=== PATIENT | female | born 1965 | race Caucasian/White ===

== ENCOUNTER 2016-12-29 18:27 | Emergency (ER) | payer MEDICAID, OTHER ==
[~2016-12-29] VITALS: Ht 157.5 cm; Wt 98.0 kg
[~2016-12-29 18:27] MED LIST: AZIT250T94 PO; D-ME118S6 PO; IBUP-1542 PO
[2016-12-29 18:42] VITALS: Ht 157.5 cm; Wt 98.0 kg
[2016-12-29] MEDS ORDERED: ONDANSETRON 4 MG INJ IV STA (18:49)
[2016-12-29] MEDS ORDERED: morphine 4 MG/ML VIAL IV STA (18:49)
--- NOTE | 2016-12-29 19:33 | ERD ---
ER Documentation Chief Complaint Date/Time DATE: 12/29/16 TIME: 19:32 Chief Complaint EPIGASTRIC RADIATING TO RT BACK PAIN X 3 MOS W/NAUSEA. WAITING U/S FROM PCP HPI 51-year-old female with history of obesity, presents to the emergency department intermittent epigastric abdominal pain that radiates to her right upper quadrant for 3 months, worsened over the last 2 days. She states that her primary care physician is aware of her pain and is still waiting for approval for the ultrasound. She reports nausea however no vomiting. Pain is sharp, intermittent. No fevers or chills noted per patient today. ROS All systems reviewed and are negative except as per history of present illness. Medications Home Meds Active Scripts Tramadol HCl (Tramadol HCl) 50 Mg Tablet, 50 MG PO Q4 Y for PAIN, #15 TAB Prov:ARBEN REYNOSO PA-C 12/29/16 Dextromethorphan Hb-Promethazine Hcl (Promethazine DM Syrup) 180 Ml Syrup, 5 ML PO Q6H Y for COUGH, #4 OZ Prov:ANTOLIN KWON MD 12/29/15 Ibuprofen* (Motrin*) 600 Mg Tab, 600 MG PO Q6, #16 TAB Prov:ANTOLIN KWON MD 12/29/15 Azithromycin* (Zithromax*) 250 Mg Tablet, 250 MG PO .ZPACK DIRECTED, #6 TAB TAKE 500 MG (2 TABS) THE FIRST DAY THEN 250 MG (1 TAB) DAYS 2-5 Prov:ANTOLIN KWON MD 12/29/15 Allergies Allergies: Coded Allergies: No Known Allergy (Unverified , 12/29/15) PMhx/Soc History of Surgery: No Anesthesia Reaction: No Hx Neurological Disorder: No Hx Respiratory Disorders: No Hx Cardiac Disorders: No Hx Psychiatric Problems: No Hx Miscellaneous Medical Probl: Yes (DM) Hx Alcohol Use: No Hx Substance Use: No Hx Tobacco Use: No Smoking Status: Never smoker Physical Exam Vitals Vital Signs Date Time Temp Pulse Resp B/P Pulse Ox O2 Delivery O2 Flow Rate FiO2 12/29/16 18:42 97.1 67 18 161/88 98 Physical Exam General: Well-developed, well-nourished. The patient appears in no acute distress. HEENT: Head is normocephalic, atraumatic. No scleral icterus. a. Neck: Supple. Nontender. Lungs: Clear to auscultation. Normal air movement. Heart: Regular rate and rhythm. S1 and S2 are normal. No murmurs, gallops, or rubs. Abdomen: Soft, tender in the epigastric and right upper quadrant, nondistended. Bowel sounds are normoactive. No rebound pain. No McBurney's tenderness. Extremities: No clubbing or cyanosis. Normal pulses. Moving extremities x 4. No weakness. Neurologic: Alert and oriented 3. No focal deficits. Skin: Normal turgor. No rash or lesions. Result Diagram: 12/29/16219912/29/162024 Results 24 hrs Laboratory Tests Test 12/29/16 19:54 12/29/16 20:25 12/29/16 22:00 Urine Color LT. YELLOW Urine Clarity CLEAR Urine pH 5.5 Urine Specific [place] <=1.005 Urine Ketones NEGATIVE Urine Nitrite NEGATIVE Urine Bilirubin NEGATIVE Urine Urobilinogen 0.2 E.U./dL Urine Leukocyte Esterase TRACE Urine Microscopic RBC 0-2/HPF Urine Microscopic WBC 0-2/HPF Urine Squamous Epithelial Cells FEW Urine Hemoglobin NEGATIVE Urine Glucose >=1000% Urine Total Protein NEGATIVE Sodium Level 137mmol/L Potassium Level 4.3mmol/L Chloride Level 99mmol/L Carbon Dioxide Level 24mmol/L Anion Gap 18 Blood Urea Nitrogen 16mg/dl Creatinine 0.47mg/dl Glucose Level 235mg/dl Calcium Level 9.5mg/dl Total Bilirubin 0.2mg/dl Direct Bilirubin 0.00mg/dl Indirect Bilirubin 0.2mg/dl Aspartate Amino Transf (AST/SGOT) 34IU/L Alanine Aminotransferase (ALT/SGPT) 43IU/L Alkaline Phosphatase 116IU/L Total Protein 7.5g/dl Albumin 3.9g/dl Globulin 3.60g/dl Albumin/Globulin Ratio 1.08 Lipase 112U/L White Blood Count 7.910^3/ul Red Blood Count 4.3010^6/ul Hemoglobin 14.2g/dl Hematocrit 41.5% Mean Corpuscular Volume 96.5fl Mean Corpuscular Hemoglobin 33.0pg Mean Corpuscular Hemoglobin Concent 34.2g/dl Red Cell Distribution Width 12.8% Platelet Count 34338^3/UL Mean Platelet Volume 9.8fl Neutrophils % 49.6% Lymphocytes % 41.5% Monocytes % 6.6% Eosinophils % 1.5% Basophils % 0.5% Nucleated Red Blood Cells % 0.0/100WBC Neutrophils # 3.910^3/ul Lymphocytes # 3.310^3/ul Monocytes # 0.510^3/ul Eosinophils # 0.110^3/ul Basophils # 0.010^3/ul Nucleated Red Blood Cells # 0.010^3/ul Current Medications Medications (Trade) Dose Ordered Sig/Mariann Route PRN Reason Start Time Stop Time Status Last Admin Dose Admin Morphine Sulfate (morphine) 4 mg ONCE STAT IV 12/29/16 18:49 12/29/16 18:50 DC 12/29/16 20:03 Ondansetron HCl (Zofran Inj) 4 mg ONCE STAT IV 12/29/16 18:49 12/29/16 18:50 DC 12/29/16 20:03 PROCEDURE: Right upper quadrant abdominal ultrasound. CLINICAL INDICATION: Abdominal pain TECHNIQUE: Haas scale and color doppler ultrasound images of the right upper quadrant. COMPARISON: None FINDINGS: Pancreas: Visualized portions appear of normal echogenicity, no focal lesions. Liver: Morphology: Mildly enlarged measuring 19.6 cm. No evidence of contour nodularity. Echogenicity: Increased echogenicity of the liver parenchyma suggestive of hepatic steatosis. Focal lesions: None. Main portal vein: Patent with hepatopetal flow. Biliary System: Normal appearing gallbladder wall. No gallstones seen. No intrahepatic biliary dilatation. Common bile duct measures 2.7 mm in maximal dimension. Kidneys: Right 14.0 cm in length. Right renal cortical thickness is preserved. Normal echogenicity. Mild right-sided hydronephrosis. No renal calculi. No focal lesions. No free fluid identified. IMPRESSION: Normal gallbladder without gallstones. Mild right-sided hydronephrosis. Mildly enlarged echogenic liver suggestive of hepatic steatosis. RPTAT: AADD .Zackery Nettlse MD, Date Time Electronically viewed and signed by .Zackery Nettles MD, on 12/29/2016 19:53 .B/ Procedures/MDM ED course: IV line was established, blood and urine were obtained. She was given morphine 4 mg and Zofran 4 mg IV. MDM: 51-year-old female presents with epigastric abdominal pain that radiates to right upper quadrant. Patient's right upper quadrant ultrasound does not show evidence of acute hepatobiliary process, she is no evidence of pancreatitis , no gallstones. She had does have hepatic steatosis seen on ultrasound, no evidence of hepatitis, labs are normal. She is a normal white count, no signs of infection, pyelonephritis, no signs of surgical and acute abdominal process and is appropriate to be discharged home. Departure Diagnosis: Primary Impression: Abdominal pain Condition: ARBEN Myles PA-C Dec 29, 2016 19:33
--- NOTE | 2016-12-29 19:53 | RADRPT ---
PROCEDURE: Right upper quadrant abdominal ultrasound. CLINICAL INDICATION: Abdominal pain TECHNIQUE: Haas scale and color doppler ultrasound images of the right upper quadrant. COMPARISON: None FINDINGS: Pancreas: Visualized portions appear of normal echogenicity, no focal lesions. Liver: Morphology: Mildly enlarged measuring 19.6 cm. No evidence of contour nodularity. Echogenicity: Increased echogenicity of the liver parenchyma suggestive of hepatic steatosis. Focal lesions: None. Main portal vein: Patent with hepatopetal flow. Biliary System: Normal appearing gallbladder wall. No gallstones seen. No intrahepatic biliary dilatation. Common bile duct measures 2.7 mm in maximal dimension. Kidneys: Right 14.0 cm in length. Right renal cortical thickness is preserved. Normal echogenicity. Mild right-sided hydronephrosis. No renal calculi. No focal lesions. No free fluid identified. IMPRESSION: Normal gallbladder without gallstones. Mild right-sided hydronephrosis. Mildly enlarged echogenic liver suggestive of hepatic steatosis. RPTAT: AADD .Zackery Nettles MD, MD Date Time Electronically viewed and signed by .Zackery Nettles MD, MD on 12/29/2016 19:53 .B/
[2016-12-29 20:17] LABS: ADD UMIC YES; URINE BILIRUBIN (Dip) NEGATIVE (NEGATIVE); URINE BLOOD (Dip) NEGATIVE (NEGATIVE); URINE COLOR LT. YELLOW (YELLOW); URINE GLUCOSE (Dip) >=1000 % (NEGATIVE); URINE KETONES (Dip) NEGATIVE (NEGATIVE); URINE LEUKOCYTE ESTERASE (Dip) TRACE (NEGATIVE); URINE NITRITE (Dip) NEGATIVE (NEGATIVE); URINE TOTAL PROTEIN (Dip) NEGATIVE (NEGATIVE); URINE UROBILINOGEN (Dip) 0.2 E.U./dL (0.1-1.0)
[2016-12-29 20:40] LABS: SQUAMOUS EPITHELIAL CELL,UR FEW; URINE RBCS 0-2 /HPF (0)
[2016-12-29 20:49] LABS: ALBUMIN 3.9 g/dl (3.3-4.9)
[2016-12-29 20:50] LABS: POTASSIUM 4.3 mmol/L (3.5-5.1)
[2016-12-29 20:52] LABS: BILIRUBIN,INDIRECT 0.2 mg/dl (0-1.1); BILIRUBIN,TOTAL 0.2 mg/dl (0.2-1.3); CREATININE 0.47 mg/dl (0.44-1.00)
[2016-12-29 20:53] LABS: ALBUMIN/GLOBULIN RATIO 1.08; CALCIUM 9.5 mg/dl (8.4-10.2); TOTAL PROTEIN 7.5 g/dl (6.1-8.1)
[2016-12-29 22:03] LABS: ADD SCAN DIFF NO
[2016-12-29 22:04] LABS: BASOPHILS % 0.5 % (0.0-2.0); EOSINOPHILS # 0.1 10^3/ul (0.0-0.5); EOSINOPHILS % 1.5 % (0.0-7.0); HEMATOCRIT 41.5 % (37.0-47.0); HEMOGLOBIN 14.2 g/dl (12.0-16.0); LYMPHOCYTES # 3.3 10^3/ul (0.8-2.9); LYMPHOCYTES % 41.5 % (15.0-51.0); MEAN CORPUSCULAR HGB CONC 34.2 g/dl (32.0-37.0); MEAN CORPUSCULAR VOLUME 96.5 fl (82.0-101.0); MEAN PLATELET VOLUME 9.8 fl (7.4-10.4); MONOCYTE # 0.5 10^3/ul (0.3-0.9); MONOCYTES % 6.6 % (0.0-11.0); NEUTROPHIL # 3.9 10^3/ul (1.6-7.5); NEUTROPHILS % 49.6 % (39.0-77.0); PLATELET COUNT 277 10^3/UL (140-415); RED CELL DISTRIBUTION WIDTH 12.8 % (11.5-14.5); WHITE BLOOD COUNT 7.9 10^3/ul (4.8-10.8)
[2016-12-29] MEDS ORDERED: TRAM50TA2 PO (22:32)
[2016-12-29 23:17] VITALS: BP 135/69; PULSE 69; RESP 16; TEMP 98.3
== END 2016-12-29 23:17 | disposition home or self-care (01) ==
LOC: FTE 18:27
DX: R10.11 Right upper quadrant pain (principal); E66.9 Obesity, unspecified; E11.9 Type 2 diabetes mellitus without complications; Z68.39 Body mass index [BMI] 39.0-39.9, adult
CPT/HCPCS: 36415; 76705; 80053; 81001; 81003; 83690; 85025; 96374; 96375; 99285; J2270; J2405

== ENCOUNTER 2018-08-21 07:40 | Emergency (ER) | END 2018-08-21 08:35 | disposition home or self-care (01) ==